=== PATIENT | male | born 1955 | race Caucasian/White ===

== ENCOUNTER 2017-01-07 16:50 | Inpatient (IN) | payer MEDICARE, OTHER ==
[~2017-01-07] VITALS: Ht 180.3 cm; Wt 107.5 kg
[2017-01-07] MEDS ORDERED: ECOTRIN81 MG PO (19:38)
[2017-01-07] MEDS ORDERED: COREG6.25 MG PO (19:39)
[2017-01-07] MEDS ORDERED: ZANTAC 150 MG150 MG PO (19:39)
[2017-01-07] MEDS ORDERED: IMDUR ER TAB 6060 MG PO (19:40)
[2017-01-08 02:32] LABS: HEMOGLOBIN 12.6 gm/dl (14.0-17.5); RED BLOOD COUNT 4.22 M/UL (4.20-5.50)
[2017-01-09 05:31] LABS: HEMOGLOBIN 13.6 gm/dl (14.0-17.5); RED BLOOD COUNT 4.63 M/UL (4.20-5.50); WHITE BLOOD COUNT 3.3 K/UL (4.5-11.0)
[2017-01-09] MEDS ORDERED: TOPROL XL25 MG PO (16:31)
[2017-01-09] MEDS ORDERED: TAMIFLU75 MG PO (16:32)
== END 2017-01-09 18:40 | disposition home or self-care (01) | DRG 641 ==
LOC: PROG CARE 19:32
PROVIDERS: ADMIT Internal Medicine
DX: E86.0 Dehydration (principal); R55 Syncope and collapse; J11.1 Influenza due to unidentified influenza virus with other respiratory manifestations; I25.10 Atherosclerotic heart disease of native coronary artery without angina pectoris; I12.9 Hypertensive chronic kidney disease with stage 1 through stage 4 chronic kidney disease, or unspecified chronic kidney disease; N18.3 Chronic kidney disease, stage 3 (moderate); E78.00 Pure hypercholesterolemia, unspecified; R50.9 Fever, unspecified; R00.1 Bradycardia, unspecified; D69.6 Thrombocytopenia, unspecified; E66.9 Obesity, unspecified; Z95.1 Presence of aortocoronary bypass graft; Z88.0 Allergy status to penicillin; Z84.89 Family history of other specified conditions; Z79.82 Long term (current) use of aspirin; Z79.899 Other long term (current) drug therapy; Z68.33 Body mass index [BMI] 33.0-33.9, adult; T50.905A Adverse effect of unspecified drugs, medicaments and biological substances, initial encounter
CPT/HCPCS: ECHO; 36415; 71010; 80048; 82550; 82553; 84484; 85025; 85027; 87040; 93005; 93306; J1650; J7030